=== PATIENT | male | born 1995 | race Caucasian/White ===

== ENCOUNTER 2017-07-13 21:33 | Emergency (ER) | payer OTHER ==
[~2017-07-13] VITALS: Ht 182.9 cm; Wt 84.4 kg
[2017-07-13 21:40] VITALS: BP 165/63
[2017-07-13] MEDS ORDERED: HYDROcodone/APAP 5/325 TABLET PO ONE (22:30)
[2017-07-13] MEDS ORDERED: ONDANSETRON ODT 4 MG PO ONE (22:30)
[2017-07-13] MEDS ORDERED: HYDROcodone/APAP 5/325 TABLET ONE (22:48)
[2017-07-13] MEDS ORDERED: ONDANSETRON ODT 4 MG ONE (22:49)
== END 2017-07-13 23:03 | disposition home or self-care (01) ==
LOC: ED 22:58
DX: S40.011A Contusion of right shoulder, initial encounter (principal); V00.321A Fall from snow-skis, initial encounter; Y93.23 Activity, snow (alpine) (downhill) skiing, snowboarding, sledding, tobogganing and snow tubing; Y99.8 Other external cause status; Y92.89 Other specified places as the place of occurrence of the external cause
CPT/HCPCS: 99284